=== PATIENT | female | born 1975 | race Caucasian/White ===

== ENCOUNTER 2023-06-03 15:21 | Outpatient (CLI) | payer BC ==
[2023-06-03 17:44] LABS: BASOPHILS # (AUTO) 0.1 10^3/uL (0.0-0.1); BASOPHILS % (AUTO) 0.5 %; EOSINOPHILS # (AUTO) 0.2 10^3/uL (0.0-0.7); EOSINOPHILS % (AUTO) 1.6 %; HCT - HEMATOCRIT 41.3 % (37.0-47.0); HGB - HEMOGLOBIN 11.9 g/dL (12.0-16.0); LYMPHOCYTES # (AUTO) 2.5 10^3/uL (1.5-3.5); LYMPHOCYTES % (AUTO) 22.5 %; MEAN CORPUSCULAR HGB CONC 28.8 g/dL (32.0-36.0); MEAN CORPUSCULAR VOLUME 79.7 fL (81.0-99.0); MEAN PLATELET VOLUME 10.1 fL (7.9-10.8); MONOCYTES # (AUTO) 0.7 10^3/uL (0.0-1.0); MONOCYTES % (AUTO) 6.6 %; NEUTROPHILS # (AUTO) 7.5 10^3/uL (1.5-6.6); NEUTROPHILS % (AUTO) 68.3 %; PLT - PLATELET COUNT 420 10^3/uL (130-450); RED BLOOD COUNT 5.18 10^6/uL (4.20-5.40); RED CELL DISTRIBUTION WIDTH 16.7 % (12.0-15.0); WHITE BLOOD COUNT 10.9 x10^3/uL (4.8-10.8)
[2023-06-03 17:56] LABS: ALBUMIN 4.3 g/dL (3.2-5.5); ALBUMIN/GLOBULIN RATIO 1.2 (1.0-2.2); ALKALINE PHOSPHATASE 85 IU/L (42-121); ALT ALANINE AMINOTRANSFERASE 15 IU/L (10-60); AST ASPARTATE AMINOTRANSFERASE 13 IU/L (10-42); BILIRUBIN,TOTAL 0.3 mg/dL (0.2-1.0); BUN - BLOOD UREA NITROGEN 14 mg/dL (6-20); CALCIUM 9.8 mg/dL (8.5-10.3); CARBON DIOXIDE - CO2 30 mmol/L (21-32); CHLORIDE 101 mmol/L (101-111); CHOL/HDL RATIO 3.2 (<4.4); CHOLESTEROL 172 mg/dL; CREATININE 0.8 mg/dL (0.6-1.3); GFR - MDRD 77 (>89); GLUCOSE 181 mg/dL (74-104); HDL CHOLESTEROL 53 mg/dL; LDL CHOLESTEROL,CALCULATED 84 mg/dL; LDL/HDL RATIO 1.6 (<4.4); SODIUM 139 mmol/L (135-145); TOTAL PROTEIN 7.8 g/dL (6.4-8.9); TRIGLYCERIDES 176 mg/dL (48-352); VLDL CHOLESTEROL 35 mg/dL
[2023-06-03 18:14] LABS: THYROID STIMULATING HORMONE 2.92 uIU/mL (0.34-5.60)
[2023-06-03 18:26] LABS: ESTIMATED AVERAGE GLUCOSE 180 mg/dL (70-100); HEMOGLOBIN A1c% 7.9 % (4.27-6.07)
[2023-06-03 19:00] LABS: SLIDE REVIEW? Indicated
[2023-06-03 19:01] LABS: PLATELET ESTIMATE, MANUAL NORMAL (130-450,000) (NORMAL); PLATELET MORPHOLOGY NORMAL APPEARANCE (NORMAL)
== END 2023-06-03 15:22 | disposition home or self-care (01) ==
LOC: LAB.N 15:21
PROVIDERS: ATTEND Nurse Practitioner Family
DX: E11.9 Type 2 diabetes mellitus without complications (principal); E66.01 Morbid (severe) obesity due to excess calories; Z68.45 Body mass index [BMI] 70 or greater, adult; Z79.4 Long term (current) use of insulin
CPT/HCPCS: 36415; 80053; 80061; 83036; 83721; 84443; 85025

== ENCOUNTER 2023-08-05 10:00 | Outpatient (CLI) | payer BC ==
--- NOTE | 2023-08-05 13:12 | XRAY Report ---
PROCEDURE: Knee 4 View BILAT INDICATIONS: BILAT KNEE PAIN TECHNIQUE: 4 views of the knee(s) were acquired. COMPARISON: None. FINDINGS: Bones: No fractures or dislocations. No suspicious bony lesions. Soft tissues: No knee joint effusion. No suspicious soft tissue calcifications or masses. IMPRESSION: No acute fracture. No osseous lesion. If symptoms and/or clinical suspicion for pathology continue, f urther assessment with repeat plain films, or advanced imaging (e.g., CT, MRI, or bone scan) is recom mended for further assessment. Reviewed by: Alvarado Magallon MD on 08/05/2023 1:10 PM PST Approved by: Alvarado Magallon MD on 08/05/2023 1:10 PM PST Station ID: [id number]
== END 2023-08-05 23:59 | disposition home or self-care (01) ==
LOC: DI.WOS 10:00
PROVIDERS: ATTEND Physician Assistant Surgical
DX: M25.562 Pain in left knee (principal); M25.561 Pain in right knee

== ENCOUNTER 2023-10-04 13:23 | Outpatient (CLI) | payer BC ==
[2023-10-04 18:20] LABS: BASOPHILS % (AUTO) 0.4 %; EOSINOPHILS # (AUTO) 0.2 10^3/uL (0.0-0.7); EOSINOPHILS % (AUTO) 1.9 %; HCT - HEMATOCRIT 43.7 % (37.0-47.0); HGB - HEMOGLOBIN 12.8 g/dL (12.0-16.0); LYMPHOCYTES # (AUTO) 2.3 10^3/uL (1.5-3.5); LYMPHOCYTES % (AUTO) 24.6 %; MEAN CORPUSCULAR HEMOGLOBIN 23.4 pg (27.0-31.0); MEAN CORPUSCULAR HGB CONC 29.3 g/dL (32.0-36.0); MEAN CORPUSCULAR VOLUME 79.9 fL (81.0-99.0); MONOCYTES # (AUTO) 0.7 10^3/uL (0.0-1.0); MONOCYTES % (AUTO) 7.3 %; NEUTROPHILS % (AUTO) 65.6 %; PLT - PLATELET COUNT 427 10^3/uL (130-450); RED BLOOD COUNT 5.47 10^6/uL (4.20-5.40); RED CELL DISTRIBUTION WIDTH 18.5 % (12.0-15.0); WHITE BLOOD COUNT 9.1 x10^3/uL (4.8-10.8)
[2023-10-04 18:55] LABS: % IRON SATURATION 5 % (20-50); BUN - BLOOD UREA NITROGEN 10 mg/dL (6-20); CALCIUM 9.9 mg/dL (8.5-10.3); CARBON DIOXIDE - CO2 29 mmol/L (21-32); CHLORIDE 99 mmol/L (101-111); CHOL/HDL RATIO 3.6 (<4.4); CHOLESTEROL 171 mg/dL; CREATININE 0.7 mg/dL (0.6-1.3); GFR - MDRD 90 (>89); GLUCOSE 151 mg/dL (74-104); HDL CHOLESTEROL 48 mg/dL; IRON 28 ug/dL (50-212); LDL CHOLESTEROL,CALCULATED 96 mg/dL; POTASSIUM 4.3 mmol/L (3.5-4.5); SODIUM 138 mmol/L (135-145); TOTAL IRON BINDING CAPACITY 517 ug/dL (250-450); TRANSFERRIN 369 mg/dL (203-362); TRIGLYCERIDES 137 mg/dL (48-352); VLDL CHOLESTEROL 27 mg/dL
[2023-10-04 19:49] LABS: THYROID STIMULATING HORMONE 2.34 uIU/mL (0.34-5.60)
[2023-10-04 19:54] LABS: FERRITIN 10.2 ng/mL (11.0-306.8)
[2023-10-04 20:20] LABS: ESTIMATED AVERAGE GLUCOSE 160 mg/dL (70-100); HEMOGLOBIN A1c% 7.2 % (4.27-6.07)
== END 2023-10-04 13:24 | disposition home or self-care (01) ==
LOC: LAB.N 13:23
PROVIDERS: ATTEND Nurse Practitioner Family
DX: E11.9 Type 2 diabetes mellitus without complications (principal); D50.9 Iron deficiency anemia, unspecified; Z79.4 Long term (current) use of insulin; Z13.220 Encounter for screening for lipoid disorders; Z13.29 Encounter for screening for other suspected endocrine disorder
CPT/HCPCS: 36415; 80048; 80061; 82043; 82570; 82728; 83036; 83540; 83721; 84443; 84466; 85025

== ENCOUNTER 2023-10-07 08:00 | Outpatient (CLI) | payer BC ==
[2023-10-07 12:44] LABS: CREATININE,URINE 91.7 mg/dL; MICROALBUM/CREATININE RATIO,UR 21.8 ug/mg (<30.0)
== END 2023-10-07 23:59 | disposition home or self-care (01) ==
LOC: LAB.N 08:00
PROVIDERS: ATTEND Nurse Practitioner Family
DX: D50.9 Iron deficiency anemia, unspecified (principal)
CPT/HCPCS: 82043; 82570

== ENCOUNTER 2024-01-12 09:20 | Outpatient (CLI) | payer BC ==
[2024-01-12 12:39] LABS: CALCIUM 9.7 mg/dL (8.5-10.3); CREATININE 0.7 mg/dL (0.6-1.3); POTASSIUM 4.2 mmol/L (3.5-4.5)
== END 2024-01-12 09:21 | disposition home or self-care (01) ==
LOC: LAB.N 09:20
PROVIDERS: ATTEND Family Medicine
DX: I10 Essential (primary) hypertension (principal); R31.9 Hematuria, unspecified
CPT/HCPCS: 36415; 80048; 87086

== ENCOUNTER 2024-01-25 14:02 | Emergency (ER) | payer BC ==
[2024-01-25 14:47] LABS: BASOPHILS % (AUTO) 0.3 %; EOSINOPHILS # (AUTO) 0.1 10^3/uL (0.0-0.7); EOSINOPHILS % (AUTO) 0.7 %; HGB - HEMOGLOBIN 13.3 g/dL (12.0-16.0); LYMPHOCYTES # (AUTO) 2.2 10^3/uL (1.5-3.5); LYMPHOCYTES % (AUTO) 16.7 %; MEAN CORPUSCULAR HGB CONC 29.6 g/dL (32.0-36.0); MEAN CORPUSCULAR VOLUME 81.2 fL (81.0-99.0); MEAN PLATELET VOLUME 9.7 fL (7.9-10.8); MONOCYTES # (AUTO) 0.9 10^3/uL (0.0-1.0); MONOCYTES % (AUTO) 7.3 %; NEUTROPHILS # (AUTO) 9.6 10^3/uL (1.5-6.6); NEUTROPHILS % (AUTO) 74.5 %; PLT - PLATELET COUNT 380 10^3/uL (130-450); RED BLOOD COUNT 5.54 10^6/uL (4.20-5.40); RED CELL DISTRIBUTION WIDTH 17.2 % (12.0-15.0); WHITE BLOOD COUNT 12.9 x10^3/uL (4.8-10.8)
[2024-01-25 15:06] LABS: ALBUMIN 4.1 g/dL (3.2-5.5); ALBUMIN/GLOBULIN RATIO 1.2 (1.0-2.2); BILIRUBIN,TOTAL 0.3 mg/dL (0.2-1.0); CREATININE 0.8 mg/dL (0.6-1.3); POTASSIUM 4.2 mmol/L (3.5-4.5); TOTAL PROTEIN 7.6 g/dL (6.4-8.9)
[2024-01-25 15:10] LABS: TROPONIN I HIGH SENSITIVITY 3.5 ng/L (2.3-14.8)
--- NOTE | 2024-01-25 15:19 | XRAY Report ---
PROCEDURE: Chest 1V INDICATIONS: Chest pain TECHNIQUE: One view of the chest was acquired. COMPARISON: None. FINDINGS: Surgical changes and devices: None. Lungs and pleura: No pleural effusions or pneumothorax. Lungs are clear. Mediastinum: Mediastinal contours appear normal. Heart size is normal. Bones and chest wall: No suspicious bony lesions. Overlying soft tissues appear unremarkable. IMPRESSION: No acute cardiopulmonary process. Reviewed by: Poli Andrews MD on 01/25/2024 3:17 PM PDT Approved by: Poli Andrews MD on 01/25/2024 3:17 PM PDT Station ID: [id number]
--- NOTE | 2024-01-25 17:41 | ED Physician Documentation ---
History of Present Illness - Stated complaint Stated Complaint: CHEST/LOW RT ABD PX - Chief complaint Chief Complaint: Abd Pain - History obtained from History obtained from: Patient, Family - History of Present Illness Pain level max: 6 Pain level now: 4 - Additonal information Additional information: Patient is a 48-year-old female who presents to the emergency department stating that she has had intermittent chest pain over the past several months. She states it feels like it is a building squeezing sensation in her chest that can last anywhere from a few minutes to a few hours. Seems to happen mostly in the evening, but can happen at any point throughout the day. Not associated with exertion. Has never had any cardiac issues in the past. She called her PCP for an appointment but was referred here instead. No fevers. No cough. No congestion. No nausea or vomiting. She is scheduled to meet with the bariatric surgeon on . She states that she started Mounjaro about 5 months ago. Nothing seems to make the pain any better or worse. She states that she just tries to "breathe through it". Patient also has a history of polycystic ovarian syndrome. She states that she has had increasing right-sided pelvic pain over the past 1 week. She states it feels like a cyst in her ovary. No nausea, vomiting, diarrhea. She states that she did have episodes of hematuria last year and again this year that lasted 1 to 2 weeks. They were not painful. She states that she was "leaking blood" from her urethra. She is not having any of this currently. Review of Systems Constitutional: denies: Fever, Chills Respiratory: denies: Cough : denies: Dysuria Skin: denies: Rash, Lesions Musculoskeletal: denies: Neck pain, Back pain Neurologic: denies: Headache PD PAST MEDICAL HISTORY - Past Medical History Past Medical History: Yes Endocrine/Autoimmune: Type 2 diabetes Other Past Medical History: PCOS - Past Surgical History /[employer]: Tubal ligation - Allergies Allergies/Adverse Reactions: Allergies Allergy/AdvReac Type Severity Reaction Status Date / Time cefprozil Allergy Hives Verified 01/25/24 14:34 adhesive AdvReac Rash Verified 01/25/24 14:33 loratadine [From Claritin] AdvReac Headache Verified 01/25/24 14:33 - Social History Does the pt smoke?: No Smoking Status: Never smoker Does the pt drink ETOH?: No Does the pt have substance abuse?: No PD ED PE NORMAL - Vitals Vital signs reviewed: Yes - General General: Alert and oriented X 3, No acute distress, Other (BMI 66) - HEENT HEENT: Moist mucous membranes - Neck Neck: Supple, no meningeal sign - Cardiac Cardiac: RRR, Strong equal pulses - Respiratory Respiratory: No respiratory distress, Clear bilaterally - Abdomen Abdomen: Soft, Non tender, Non distended - Derm Derm: Warm and dry - Extremities Extremities: No edema, No calf tenderness / cord - Neuro Neuro: Alert and oriented X 3 - Psych Psych: Normal mood, Normal affect Results - Vitals Vitals: Vital Signs - 24 hr 01/25/24 01/25/24 01/25/24 14:20 16:24 18:24 Temperature 36.7 C Heart Rate 111 H 99 Respiratory 18 18 20 Rate Blood Pressure 182/99 H 147/99 H 150/98 H O2 Saturation 96 100 98 01/25/24 19:53 Temperature Heart Rate 80 Respiratory 16 Rate Blood Pressure 146/87 H O2 Saturation 95 Oxygen O2 Source Room air - Labs Labs: Laboratory Tests 01/25/24 01/25/24 14:40 14:40 WBC 12.9 H RBC 5.54 H Hgb 13.3 Hct 45.0 MCV 81.2 MCH 24.0 L MCHC 29.6 L RDW 17.2 H Plt Count 380 MPV 9.7 Neut # (Auto) 9.6 H Lymph # (Auto) 2.2 Sibley # (Auto) 0.9 Eos # (Auto) 0.1 Baso # (Auto) 0.0 Absolute Nucleated RBC 0.00 Nucleated RBC % 0.0 Sodium 137 Potassium 4.2 Chloride 100 L Carbon Dioxide 30 Anion Gap 7.0 BUN 13 Creatinine 0.8 Estimated GFR (MDRD) 77 L Glucose 265 H Calcium 10.0 Total Bilirubin 0.3 AST 11 ALT 16 Alkaline Phosphatase 78 Troponin I High Sens 3.5 Total Protein 7.6 Albumin 4.1 Globulin 3.5 Albumin/Globulin Ratio 1.2 Lipase 41 - Rads (name of study) Right upper quadrant ultrasound Relevant Findings:: Final report received, See rad report Pelvic ultrasound Relevant Findings:: Final report received, See rad report PD Medical Decision Making - ED course Complexity details: reviewed results, re-evaluated patient, considered differential, d/w patient ED course: No acute findings on right upper quadrant ultrasound. Limited secondary to body habitus. No acute findings on chest x-ray. No acute findings on EKG. Her pelvic ultrasound shows an enlarged right ovary with a simple appearing 3.5 cm cyst. No evidence of torsion. Symptoms are not consistent with intermittent torsion. No evidence of acute coronary syndrome. Negative high-sensitivity troponin. She is diabetic, glucose is elevated here, no evidence of DKA or hyperosmolar nonketotic state. Patient is scheduled to meet with her bariatric surgeon on . Recommend that she follow-up with them to discuss further investigation of her symptoms including possible gastritis, GERD, dysfunctional gallbladder, could be evaluated with a HIDA scan. Would consider starting a PPI if they feel that this is appropriate. Patient is asymptomatic here. For her intermittent hematuria, recommend that she follow-up with urology as she may need a cystoscopy. She will follow-up with her PCP for follow-up of the ovarian cyst. She states that she is not interested in having anymore children, counseled regarding potential torsion versus intermittent torsion. Patient co unseled regarding signs and symptoms for which I believe and urgent re- evaluation would be necessary. Patient with good understanding of and agreement to plan and is comfortable going home at this time This document was made in part using voice recognition software. While efforts are made to proofread this document, sound alike and grammatical errors may occur. Departure - Departure Disposition: 01 Home, Self Care Clinical Impression: Abdominal pain Qualifiers: Abdominal location: unspecified location Qualified Code(s): R10.9 - Unspecified abdominal pain Ovarian cyst Qualifiers: Laterality: right Qualified Code(s): N83.201 - Unspecified ovarian cyst, right side Chest pain Qualifiers: Chest pain type: unspecified Qualified Code(s): R07.9 - Chest pain, unspecified Condition: Good Instructions: ED Chest Pain Atypical Unkn Cause, ED Cyst Ovarian Follow-Up: GLENN LOVELL MD [Primary Care Provider] - Comments: As we discussed, the cause of your symptoms is unclear today. Your chest/epigastric abdominal pain could be due to a dysfunctional gallbladder. The ultrasound of your liver and gallbladder do not show any acute abnormalities today. There are no gallstones visible, your ducts and wall are normal. Your pelvic ultrasound does show a right-sided ovarian cyst, approximately 3.5 x 3.4 x 3.2 cm. There is no evidence of torsion. It is recommended that you have a cardiac stress test with your doctor. They may want to evaluate your gallbladder further with a HIDA scan. This can be ordered as an outpatient and performed with nuclear medicine, likely at [facility] in [place], you can discuss this with your bariatric surgeon on . You may also want to discuss with your bariatric surgeon starting a PPI such as Nexium to see if this helps your symptoms as well. Please return if you worsen. Your laboratory testing does not show any significant abnormalities today. Forms: PCP List Discharge Date/Time: 01/25/24 19:54
--- NOTE | 2024-01-25 19:45 | Ultrasound Report ---
PROCEDURE: Abdomen Limited INDICATIONS: RUQ pain TECHNIQUE: Real-time focused scanning was performed of the abdomen, with image documentation. COMPARISONS: None. FINDINGS: Liver: Liver is enlarged, measuring up to 21.6 cm in maximum dimension with diffuse increased echoge nicity with posterior acoustic attenuation. Gallbladder: No gallstones, sludge, wall thickening or pericholecystic edema. Biliary ducts: Intrahepatic bile ducts are non-dilated. Extrahepatic bile duct caliber measures 4.2 mm. Normal is 6-7 mm or less in diameter, or 10 mm or less post-cholecystectomy. Pancreas: Visualized portions of the pancreas are sonographically normal. Right kidney: Normal in size and echotexture. Right kidney measures 11.3 cm long. No hydronephrosis or nephrolithiasis. No solid masses. No complex renal cystic lesions which require follow-up. IVC: Intrahepatic inferior vena cava is patent. Miscellaneous: No free abdominal fluid. IMPRESSION: Hepatomegaly and diffusely increased hepatic echogenicity are nonspecific, but most commonly encounte red in the setting of hepatic steatosis. However, other causes of hepatocellular disease are not excl uded. Recommend clinical correlation. Reviewed by: Marquise Barclay MD on 01/25/2024 7:44 PM PDT Approved by: Marquise Barclay MD on 01/25/2024 7:44 PM PDT Station ID: [id number]
--- NOTE | 2024-01-25 19:53 | Ultrasound Report ---
PROCEDURE: Pelvic w/Doppler Complete INDICATIONS: pelvic pain, R TECHNIQUE: Real-time scanning was performed of the pelvic organs, with image documentation. COMPARISON: None. FINDINGS: Technically difficult exam due to patient body habitus. Transvaginal scanning was not performed. No pathologic free abdominal or pelvic fluid. Uterus: Uterus is enlarged at 12.3 x 5.1 x 5.8 cm. Uterus is anteverted with heterogeneous myometri um. The endometrium measures 13.9 mm in combined thickness. Ovaries: Right ovary measures 6.2 x 3.2 x 5.1 cm with a calculated volume of 53 mL. A 3.5 x 3.4 x 3. 2 cm cyst is seen in the right ovary. Left ovary measures 4.7 x 1.5 x 2.5 cm calculus in alignment of 8.9 mL. IMPRESSION: Right ovary is enlarged by a simple appearing 3.5 cm cyst. Blood flow is noted to each ovary. However , given the size discrepancy between the right and left ovary, intermittent right ovarian torsion/det orsion cannot be entirely excluded sonographically and clinical correlation is recommended. Reviewed by: Marquise Barclay MD on 01/25/2024 7:51 PM PDT Approved by: Marquise Barclay MD on 01/25/2024 7:51 PM PDT Station ID: [id number]
[2024-01-25 19:54] VITALS: BP 146/87; O2SAT 95
== END 2024-01-25 19:54 | disposition home or self-care (01) ==
LOC: ED 14:02
DX: N83.291 Other ovarian cyst, right side (principal); R07.9 Chest pain, unspecified; E11.9 Type 2 diabetes mellitus without complications
CPT/HCPCS: 36415; 80053; 83690; 84484; 85025; 93005; 93975; 99284